=== PATIENT | female | born 1945 | race Asian ===

== ENCOUNTER 2018-01-04 11:20 | Day surgery (SDC) | payer OTHER ==
[2018-01-04] MEDS ORDERED: MIDAZOLAM 1 MG/ML 2 ML INJ (14:39)
[2018-01-04] MEDS ORDERED: FENTAnyl 50 MCG/ML VIAL (14:40)
== END 2018-01-04 14:47 | disposition home or self-care (01) ==
LOC: GIL 11:20
DX: Z12.11 Encounter for screening for malignant neoplasm of colon (principal); K63.5 Polyp of colon; D12.7 Benign neoplasm of rectosigmoid junction; K64.9 Unspecified hemorrhoids; Z80.1 Family history of malignant neoplasm of trachea, bronchus and lung
CPT/HCPCS: 45385; 88305